=== PATIENT | male | born 1970 | race Caucasian/White ===

== ENCOUNTER 2017-04-01 10:41 | Emergency (ER) | payer OTHER ==
[2011-04-20 14:30] VITALS: BMI 34.2
[2017-04-01 11:16] LABS: BASOPHILS 0.2 % (0-2); EOSINOPHILS 2.1 % (0-7); HEMOGLOBIN 11.7 g/dL (13.5-17.5); IMMATURE GRANULOCYTES 0.5 % (0-5); MCH 30.2 pg (26.0-34.0); MCHC 32.5 g/dL (31.0-37.0); MEAN PLATELET VOLUME 8.7 fL (7.4-10.4); MONOCYTES 4.6 % (2-11); NEUTROPHILS 82.6 % (40-80); PLATELET COUNT 449 10x3/uL (130-400); RBC 3.87 10x6/uL (4.20-6.10); WBC 13.3 10x3/uL (4.8-10.8)
[2017-04-01 11:28] LABS: ALBUMIN 3.3 g/dL (3.4-5.0); ALKALINE PHOSPHATASE 156 U/L (46-116); ALT (SGPT) 64 U/L (10-68); CALC OSMOLALITY 284 mosm/kg (275-300); CALCIUM 8.8 mg/dL (8.5-10.1); CHLORIDE - SERUM 106 mmol/L (98-107); CREATININE - SERUM 1.4 mg/dL (0.6-1.3); GLUCOSE 89 mg/dL (74-106); POTASSIUM - SERUM 4.5 mmol/L (3.5-5.1); PROTEIN - SERUM 6.9 g/dL (6.4-8.2); SODIUM 143 mmol/L (136-145); UREA NITROGEN 14 mg/dL (7-18); eGFR NON AFRICAN AMERICAN 58 mL/min (90-120)
[2017-04-01 11:51] LABS: CHOL - HDL RATIO 3.1 ratio (2.3-4.9); CHOLESTEROL, TOTAL 114 mg/dL (0-200); CKMB 3.4 U/L (0.0-3.6); CREATINE KINASE 158 UL (21-232); HDL CHOLESTEROL 37 mg/dL (32-96); LDL CHOLESTEROL 64 mg/dL (0-100); LDL-HDL RATIO 1.7 ratio (1.5-3.5); TRIGLYCERIDE 67 mg/dL (30-200)
[2017-04-01 11:53] LABS: TROPONIN-I 0.229 ng/mL (0.000-0.060)
== END 2017-04-01 13:02 | disposition other institution (70) ==
LOC: D.ER 10:41
PROVIDERS: Emergency Medicine
DX: R07.9 Chest pain, unspecified (principal); Z95.1 Presence of aortocoronary bypass graft; R94.31 Abnormal electrocardiogram [ECG] [EKG]; R00.0 Tachycardia, unspecified

== ENCOUNTER 2017-09-24 05:57 | Emergency (ER) | payer OTHER ==
[2011-04-20 14:30] VITALS: BMI 34.2
[2017-09-24 06:37] LABS: BASOPHILS 0.4 % (0-2); EOSINOPHILS 4.1 % (0-7); HEMATOCRIT 43.1 % (42.0-54.0); LYMPHOCYTES 22.7 % (15-50); MCH 27.3 pg (26.0-34.0); MCHC 32.5 g/dL (31.0-37.0); MCV 84.2 fL (80.0-100.0); MEAN PLATELET VOLUME 9.6 fL (7.4-10.4); MONOCYTES 12.4 % (2-11); NEUTROPHILS 60.4 % (40-80); PLATELET COUNT 287 10x3/uL (130-400); RBC 5.12 10x6/uL (4.20-6.10); RDW 17.8 % (11.5-14.5); WBC 5.3 10x3/uL (4.8-10.8)
[2017-09-24 06:49] LABS: ALBUMIN 3.7 g/dL (3.4-5.0); ALKALINE PHOSPHATASE 88 U/L (46-116); ALT (SGPT) 31 U/L (10-68); BILIRUBIN - TOTAL 0.25 mg/dL (0.2-1.3); CALC OSMOLALITY 275 mosm/kg (275-300); CALCIUM 8.8 mg/dL (8.5-10.1); CHLORIDE - SERUM 103 mmol/L (98-107); CREATININE - SERUM 1.5 mg/dL (0.6-1.3); GLUCOSE 95 mg/dL (74-106); POTASSIUM - SERUM 4.2 mmol/L (3.5-5.1); PROTEIN - SERUM 7.2 g/dL (6.4-8.2); SODIUM 137 mmol/L (136-145); UREA NITROGEN 17 mg/dL (7-18); eGFR NON AFRICAN AMERICAN 53 mL/min (90-120)
[2017-09-24 07:07] LABS: CKMB 1.8 U/L (0.0-3.6); CREATINE KINASE 256 UL (21-232); MAGNESIUM - SERUM 2.6 mg/dL (1.8-2.4)
[2017-09-24 07:08] LABS: PRO BNP 7 pg/mL (0-125); TROPONIN-I < 0.017 ng/mL (0.000-0.060)
== END 2017-09-24 08:42 | disposition home or self-care (01) ==
LOC: D.ER 05:57
PROVIDERS: Family Medicine
DX: M62.838 Other muscle spasm (principal); M54.6 Pain in thoracic spine

== ENCOUNTER → 2018-01-26 16:33 | Outpatient (CLI) | payer OTHER ==
[2011-04-20 14:30] VITALS: BMI 34.2
[2018-01-26 17:19] LABS: LDL-HDL RATIO 9.1 ratio (1.5-3.5)
== END | disposition home or self-care (01) ==
LOC: D.LABREF 16:33
PROVIDERS: Internal Medicine Cardiovascular Disease
DX: I25.10 Atherosclerotic heart disease of native coronary artery without angina pectoris (principal)

== ENCOUNTER → 2018-03-10 16:56 | Outpatient (CLI) | payer OTHER ==
[2011-04-20 14:30] VITALS: BMI 34.2
[2018-03-10 17:37] LABS: LDL-HDL RATIO 4.9 ratio (1.5-3.5)
== END | disposition home or self-care (01) ==
LOC: D.LABREF 16:56
PROVIDERS: Internal Medicine Cardiovascular Disease
DX: I25.10 Atherosclerotic heart disease of native coronary artery without angina pectoris (principal)

== ENCOUNTER → 2018-04-07 18:04 | Outpatient (CLI) | payer OTHER ==
[2011-04-20 14:30] VITALS: BMI 34.2
[2018-04-07 19:21] LABS: CHOL - HDL RATIO 3.6 ratio (2.3-4.9); LDL-HDL RATIO 2.1 ratio (1.5-3.5)
== END | disposition home or self-care (01) ==
LOC: D.LABREF 18:04
PROVIDERS: Internal Medicine Cardiovascular Disease
DX: E78.5 Hyperlipidemia, unspecified (principal)

== ENCOUNTER → 2018-08-23 16:44 | Outpatient (CLI) | payer OTHER ==
[2011-04-20 14:30] VITALS: BMI 34.2
[2018-08-23 18:42] LABS: CHOL - HDL RATIO 8.1 ratio (2.3-4.9)
== END | disposition home or self-care (01) ==
LOC: D.LABREF 16:44
PROVIDERS: Internal Medicine Cardiovascular Disease
DX: E78.5 Hyperlipidemia, unspecified (principal)

== ENCOUNTER → 2018-10-26 17:13 | Outpatient (CLI) | payer OTHER ==
[2011-04-20 14:30] VITALS: BMI 34.2
[2018-10-26 18:59] LABS: LDL-HDL RATIO 0.8 ratio (1.5-3.5)
== END | disposition home or self-care (01) ==
LOC: D.LABREF 17:13
PROVIDERS: Internal Medicine Cardiovascular Disease
DX: E78.5 Hyperlipidemia, unspecified (principal)

== ENCOUNTER → 2019-08-30 13:54 | Outpatient (CLI) | payer OTHER ==
[2011-04-20 14:30] VITALS: BMI 34.2
== END | disposition home or self-care (01) ==
LOC: D.HCCECHO 13:54
PROVIDERS: ATTEND Internal Medicine Cardiovascular Disease
DX: I25.10 Atherosclerotic heart disease of native coronary artery without angina pectoris (principal)